=== PATIENT | female | born 2000 | race American Indian/Alaskan Native ===

== ENCOUNTER 2018-05-24 12:30 | Emergency (ER) | payer OTHER ==
[2018-05-24 13:10] VITALS: BP 131/68
--- NOTE | 2018-05-24 13:11 | Emergency Department Report ---
Blank Doc - Documentation Documentation: 18 y o female presents to ED cc of right sided pelvic pain x yesterday cc of pressure qwith urinating LMP: 04/20/2018 UA upt ACC evaluate
[2018-05-24 14:08] LABS: HCG Qualitative,Urine Negative (Negative)
[2018-05-24 14:10] LABS: Bacteria,Urine 1+ /HPF (Negative); Bilirubin,Urine NEG (Negative); Blood,Urine NEG (Negative); Mucus,Urine 1+ /HPF
[2018-05-24 14:19] LABS: Color,Urine Yellow (Yellow)
--- NOTE | 2018-05-24 14:39 | Emergency Department Report ---
ED Female HPI - General Chief complaint: Abdominal Pain Stated complaint: PELVIC PAIN Time Seen by Provider: 05/24/18 13:09 Source: patient Mode of arrival: Ambulatory Limitations: No Limitations - History of Present Illness Initial comments: This is a 18-year-old -[place] female who presents with right lower pelvic pain for 1. Patient admits to nausea without vomiting and pressure with urination. Patient states symptoms started yesterday and increase after work and now. Patient reports pain is sharp intermittent pain that is nonradiating. Her last menstrual period was 04/20/2018, 0. Patient denies risk of STD. She denies vaginal bleeding, vaginal discharge, urinary frequency, urgency, dysuria, and diarrhea. MD Complaint: pelvic pain Onset/Timin -: days(s) Location: RLQ Radiation: non-radiating Severity: moderate Severity scale (0 -10): 5 Quality: sharp Consistency: intermittent Improves with: none Worsens with: none Are you Now?: No Last Menstrual Period: 04/20/18 EDC: 01/25/19 Associated Symptoms: abdominal pain, nausea/vomiting. denies: vaginal discharge, vaginal bleeding, fever/chills, headaches, loss of appetite, dysuria, hematuria, rash, seizure, shortness of breath, syncope, weakness - Related Data Sexually active: Yes : 0 Para: 0 A: 0 Previous Rx's Medication Instructions Recorded Last Taken Type Phenazopyridine [Pyridium] 200 mg PO TID #6 tab 05/24/18 Unknown Rx Sulfamethoxazole/Trimethoprim 1 each PO BID #6 tablet 05/24/18 Unknown Rx [Bactrim DS TAB] Allergies Allergy/AdvReac Type Severity Reaction Status Date / Time No Known Allergies Allergy Verified 05/24/18 13:12 ED Review of Systems ROS: Stated complaint: PELVIC PAIN Other details as noted in HPI Constitutional: denies: chills, fever Respiratory: denies: cough, shortness of breath, wheezing Cardiovascular: denies: chest pain, palpitations Gastrointestinal: abdominal pain. denies: nausea, diarrhea Musculoskeletal: denies: back pain, joint swelling, arthralgia Skin: denies: rash, lesions Neurological: denies: headache, weakness, paresthesias Psychiatric: denies: anxiety, depression ED Past Medical Hx - Past Medical History Previous Medical History?: No - Surgical History Past Surgical History?: No - Social History Smoking Status: Never Smoker Substance Use Type: None - Medications Home Medications: Home Medications Medication Instructions Recorded Confirmed Last Taken Type Phenazopyridine [Pyridium] 200 mg PO TID #6 tab 05/24/18 Unknown Rx Sulfamethoxazole/Trimethoprim 1 each PO BID #6 tablet 05/24/18 Unknown Rx [Bactrim DS TAB] ED Physical Exam - General Limitations: No Limitations General appearance: alert, in no apparent distress, obese - Respiratory Respiratory exam: Present: normal lung sounds bilaterally. Absent: respiratory distress - Cardiovascular Cardiovascular Exam: Present: regular rate, normal rhythm. Absent: systolic murmur, diastolic murmur, rubs, gallop - GI/Abdominal GI/Abdominal exam: Present: soft, normal bowel sounds. Absent: distended, tenderness, guarding, rebound, rigid, organomegaly, mass, bruit, pulsatile mass, hernia - Back Exam Back exam: Absent: CVA tenderness (R), CVA tenderness (L) - Neurological Exam Neurological exam: Present: alert, oriented X3, normal gait - Psychiatric Psychiatric exam: Present: normal affect, normal mood - Skin Skin exam: Present: warm, dry, intact, normal color. Absent: rash ED Course Vital Signs 05/24/18 13:08 Temperature 98.2 F Pulse Rate 82 Respiratory 16 Rate Blood Pressure 131/68 O2 Sat by Pulse 100 Oximetry ED Medical Decision Making - Lab Data Lab Results 05/24/18 Range/Units 13:34 Urine Color Yellow (Yellow) Urine Turbidity Cloudy (Clear) Urine pH 5.0 (5.0-7.0) Ur Specific [place] 1.030 (1.003-1.030) Urine Protein 30 mg/dl (Negative) mg/dL Urine Glucose (UA) Neg (Negative) mg/dL Urine Ketones Neg (Negative) mg/dL Urine Blood Neg (Negative) Urine Nitrite Neg (Negative) Ur Reducing Substances Not Reportable Urine Bilirubin Neg (Negative) Urine Ictotest Not Reportable Urine Urobilinogen 2.0 (<2.0) mg/dL Ur Leukocyte Esterase Lg (Negative) Urine WBC (Auto) 16.0 H (0.0-6.0) /HPF Urine RBC (Auto) 6.0 (0.0-6.0) /HPF U Epithel Cells (Auto) 28.0 H (0-13.0) /HPF Urine Bacteria (Auto) 1+ (Negative) /HPF Urine Mucus 1+ /HPF Urine HCG, Qual Negative (Negative) - Medical Decision Making This is a 18-year-old female who presents to emergency department with right- sided pelvic pain for 1 day. Patient was examined by me. Vitals are stable and in no acute distress. A urinalysis and urine test was obtained. On focal exam negative abdominal tenderness on palpation. She denies vaginal discharge or bleeding. Negative test. Urinalysis signs of acute cystitis. Patient will be treated with Bactrim and Pyridium. Referral to gynecology for further evaluation. Discharged home in stable condition. Critical care attestation.: If time is entered above; I have spent that time in minutes in the direct care of this critically ill patient, excluding procedure time. ED Disposition Clinical Impression: Pelvic pain Acute cystitis Qualifiers: Hematuria presence: without hematuria Qualified Code(s): N30.00 - Acute cystitis without hematuria Disposition: TO HOME OR SELFCARE Is pt being admited?: No Does the pt Need Aspirin: No Condition: Stable Instructions: Abdominal Pain (ED), Urinary Tract Infection in Women (ED) Additional Instructions: Increase fluid intake to 1L to 2L daily. Complete full course of antibiotics as prescribed. Avoid drinking alcohol while taking antibiotics and for 24 hours after completion. Follow up with primary care provider in 2-3 days. Prescriptions: Sulfamethoxazole/Trimethoprim [Bactrim DS TAB] 1 each PO BID #6 tablet Phenazopyridine [Pyridium] 200 mg PO TID #6 tab Referrals: [facility] [Primary Care Provider] - 3-5 Days [facility] [Provider Group] - 3-5 Days [facility] [Provider Group] - 3-5 Days [facility] [Provider Group] - 3-5 Days Forms: Work/School Release Form(ED), Accompanied Note Time of Disposition: 14:56
== END 2018-05-24 15:00 | disposition home or self-care (01) ==
LOC: ED 12:30
DX: N30.00 Acute cystitis without hematuria (principal)
CPT/HCPCS: 81001; 81025

== ENCOUNTER 2020-11-19 14:21 | Emergency (ER) | payer OTHER ==
[2020-11-19 15:03] VITALS: BP 114/64
--- NOTE | 2020-11-19 16:23 | Emergency Department Report ---
Chief Complaint: Urogenital-Female Stated Complaint: DISCOMFORT IN VAGINAL Time Seen by Provider: 11/19/20 15:45 - HPI History of Present Illness: 20-year-old -[place] female presents to the emergency room complaining of vaginal bumps and increased vaginal discharge. She reported that she has been having rough intercourse and that is why her vaginal area hurts. - Exam Vital Signs: Vital Signs 11/19/20 15:02 Temperature 97.9 F Pulse Rate 70 Respiratory 16 Rate Blood Pressure 114/64 [Left] O2 Sat by Pulse 100 Oximetry Physical Exam: Patient is alert and oriented x3 no acute distress nontoxic in appearance Patient is no respiratory distress Regular rate Ambulatory without difficulty MSE screening note: Focused history and physical exam performed. Due to findings the following was ordered: 20-year-old -[place] female presents to the emergency room complaining of vaginal bumps and increased vaginal discharge. She reported that she has been having rough intercourse and that is why her vaginal area hurts. Discussed with patient she can follow-up with STD clinic or [facility]. ED Disposition for MSE Disposition: 01 HOME / SELF CARE / HOMELESS Is pt being admited?: No Does the pt Need Aspirin: No Condition: Stable
== END 2020-11-19 15:55 | disposition home or self-care (01) ==
LOC: ED 14:21
DX: N89.8 Other specified noninflammatory disorders of vagina (principal)
CPT/HCPCS: 99281